=== PATIENT | male | born 1990 | race Caucasian/White ===

== ENCOUNTER 2018-12-25 22:35 | Emergency (ER) | payer MEDICAID ==
[~2018-12-25] VITALS: Ht 172.7 cm; Wt 6.8 kg
[2018-12-25] MEDS ORDERED: ketorolac tromethamine 15mg/ml inj. IM ONE (23:20)
[2018-12-26] MEDS ORDERED: AMOX-580 PO (00:20)
[2018-12-26 00:34] VITALS: BP 118/62
[2018-12-26] MEDS ORDERED: POLY17PO10 PO (00:39)
== END 2018-12-26 00:40 | disposition home or self-care (01) ==
LOC: ER 22:36
DX: I88.9 Nonspecific lymphadenitis, unspecified (principal); F17.200 Nicotine dependence, unspecified, uncomplicated; Z90.89 Acquired absence of other organs; Z79.899 Other long term (current) drug therapy
CPT/HCPCS: 76536; 96372; 99284; J1885

== ENCOUNTER → 2019-10-23 | Emergency (ER) | payer MEDICAID ==
[~2019-10-23] VITALS: Ht 172.7 cm; Wt 68.2 kg
[~2019-10-23] MED LIST: ALBU8HFA PO; BENZ-16 PO
[2019-10-23 17:45] VITALS: BP 102/64
== END | disposition home or self-care (01) ==
LOC: ER 17:38
DX: R05 Cough (principal); J02.9 Acute pharyngitis, unspecified; Z98.890 Other specified postprocedural states; Z79.891 Long term (current) use of opiate analgesic
CPT/HCPCS: 99283

== ENCOUNTER 2020-12-15 17:54 | Emergency (ER) | payer MEDICAID ==
[~2020-12-15] VITALS: Ht 170.2 cm; Wt 68.0 kg
[~2020-12-15 17:54] MED LIST changes: -ALBU8HFA PO
[2020-12-15 18:42] VITALS: BP 107/72
== END 2020-12-16 | disposition home or self-care (01) ==
LOC: ER 12-16 03:43
DX: U07.1 COVID-19 (principal)
CPT/HCPCS: 87635; 99283; C9803

== ENCOUNTER 2023-08-11 19:23 | Emergency (ER) | payer MEDICAID ==
[~2023-08-11] VITALS: Ht 175.3 cm; Wt 77.3 kg
[2023-08-11 19:46] VITALS: TEMP 98.2
[2023-08-11 20:38] LABS: BILIRUBIN,URINE NEGATIVE (Neg); CLARITY,URINE CLEAR (Clear); COLOR,URINE YELLOW (Yellow); GLUCOSE, URINE NEGATIVE (Neg); KETONES,URINE TRACE mg/dl (Neg); LEUKOCYTE ESTERASE ,URINE NEGATIVE (Neg); NITRITES, URINE NEGATIVE (Neg); OCCULT BLOOD,URINE NEGATIVE (Neg); PH,URINE 6.5 (4.8-8.0); PROTEIN,URINE NEGATIVE (Neg); UROBILINOGEN,URINE 0.2 E.U/dL (0.2-1.0)
[2023-08-11 20:43] LABS: UA COLLECTION TYPE CLN CATCH MIDSTREAM
[2023-08-11 21:22] LABS: BASOPHILS % (AUTO) 0.3 % (0-1); EOSINOPHILS # (AUTO) 0.2 X10'3 (0-0.9); EOSINOPHILS % (AUTO) 2.2 % (0-6); HEMATOCRIT 40.2 % (42.0-52.0); HEMOGLOBIN 13.8 g/dl (14.0-17.9); LYMPHOCYTES # (AUTO) 1.6 X10'3 (1.1-4.8); LYMPHOCYTES % (AUTO) 18.2 % (21-51); MEAN CORPUSCULAR HEMOGLOBIN 33.7 PG (27.0-31.0); MEAN CORPUSCULAR HGB CONC 34.4 g/dL (33.0-36.5); MEAN CORPUSCULAR VOLUME 97.8 FL (78-98); MEAN PLATELET VOLUME 7.1 FL (7.4-10.4); MONOCYTES # (AUTO) 0.5 X10'3 (0-0.9); MONOCYTES % (AUTO) 5.5 % (2-12); NEUTROPHILS # (AUTO) 6.3 X10'3 (1.8-7.7); NEUTROPHILS % (AUTO) 73.8 % (42-75); PLATELET COUNT 226 X10'3 (140-440); RED BLOOD COUNT 4.11 X10'6 (4.70-6.10); RED CELL DISTRIBUTION WIDTH 13.2 % (11.5-14.5); WHITE BLOOD COUNT 8.5 X10'3 (4.5-11.0)
[2023-08-11 21:40] LABS: ALANINE AMINOTRANSFERASE 28 U/L (12-78); ALBUMIN 4.3 G/DL (3.4-5.0); ALKALINE PHOSPHATASE 69 IU/L (46-116); ANION GAP 10 (8-16); ASPARTATE AMINO TRANSFERASE 24 U/L (10-37); BILIRUBIN,TOTAL 0.4 MG/DL (0.1-1.0); BLOOD UREA NITROGEN 11 MG/DL (7-18); BUN/CREATININE RATIO 10.5 (10.0-20.0); CHLORIDE 102 MMOL/L (99-107); CREATININE 1.05 MG/DL (0.60-1.10); GLUCOSE 84 MG/DL (70-104); POTASSIUM 4.3 MMOL/L (3.5-5.1); SODIUM 139 MMOL/L (135-145); TOTAL CARBON DIOXIDE 26.7 MMOL/L (24-32); TOTAL PROTEIN 8.6 G/DL (6.4-8.2); eCRCL 103 ML/MIN; eGFR 83 ML/MIN
[2023-08-12 00:59] VITALS: BP 108/80; PULSE 78; O2SAT 98
[2023-08-12 01:00] VITALS: RESP 16
[2023-08-12] MEDS ORDERED: ACET-812 PO (01:01)
[2023-08-12] MEDS: ibuprofen tablet 400 MG TABLET PO ONE (01:31)
[2023-08-12] MEDS: acetaminophen 325mg tablet PO ONE (01:32)
== END 2023-08-12 01:36 | disposition home or self-care (01) ==
LOC: ER 19:24
DX: R10.9 Unspecified abdominal pain (principal); Z79.1 Long term (current) use of non-steroidal anti-inflammatories (NSAID); Z79.899 Other long term (current) drug therapy
CPT/HCPCS: 36415; 80053; 81003; 85025; 99283

== ENCOUNTER 2023-11-17 13:17 | Emergency (ER) | payer MEDICAID ==
[~2023-11-17] VITALS: Ht 172.7 cm; Wt 73.2 kg
[2023-11-17] MEDS: HYDROcodone/acetaminophen 10/325mg tab PO ONE (14:22)
[2023-11-17] MEDS: LIDOcaine/epinephrine/tetracaine TOPICAL sol 3 ML syringe TOP ONE (16:33)
[2023-11-17] MEDS ORDERED: HYDR-3965 PO (16:47)
[2023-11-17 17:07] VITALS: BP 108/79; PULSE 62; RESP 16; TEMP 98.8; O2SAT 98
== END 2023-11-17 17:11 | disposition home or self-care (01) ==
LOC: ER 13:17
DX: S02.69XA Fracture of mandible of other specified site, initial encounter for closed fracture (principal); S80.212A Abrasion, left knee, initial encounter; S80.211A Abrasion, right knee, initial encounter; Z98.890 Other specified postprocedural states; Z79.899 Other long term (current) drug therapy; X58.XXXA Exposure to other specified factors, initial encounter; Y93.89 Activity, other specified; Y92.89 Other specified places as the place of occurrence of the external cause; Y99.8 Other external cause status
CPT/HCPCS: 70450; 70486; 73130; 73610; 99284; J3490